=== PATIENT | male | born 1985 | race Caucasian/White ===

== ENCOUNTER 2022-10-11 11:18 | Outpatient (AMB) | payer OTHER, SELFPAY ==
[2022-10-11 11:33] VITALS: BP 108/66; PULSE 55; RESP 12; TEMP 36.4; O2SAT 99; BMI 25.1
--- NOTE | 2022-10-11 11:33 | MHC.PC.OV ---
Vital Signs 10/11/22 11:33 Height 6 ft Weight 185 lb 4 oz BMI 25.1 BP 108/66 Blood Pressure Location Rt brachial Position Sitting Respiration 12 Pulse 55 Pulse Source Pulse Oximeter Temp 97.6 F Temp Source Temporal Artery Scan Pulse Oximetry (%) 99 Oxygen Delivery Method Room Air Intake Visit Reasons: New patient-Requesting physical Intake Note: Patient states that he has had vasavagal Syncope his whole life. Patient states that he has been fainting alot more often than he has in the past 8 years. Patient states that it happens very randomly. Lunch Cook Required: No Accompanied by: Self / Same As Patient Allergies No Known Allergies Allergy (Verified 10/11/22 11:46) Medication List - Last Reconciled 10/11/22 by Scar Chapa CNP multivitamin 1 tab PO DAILY Dental Screening Dental Screen Date: 10/11/22 Did you have a dental visit in the last 12 months?: Yes Did you have a dental problem in the last 6 months where you did not have access to dental care?: No Was dental information given to patient?: Patient has dentist HPI HPI Comments History of Present Illness Details 37-year-old male presents to [facility] care. He notes he was last evaluated by his former PCP a year ago. He had blood work done 3 years ago. He reports history of vasovagal syncope. He reports 4 episodes in the past 2 years; last episode was 3 weeks ago while lying in bed. 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 He notes he had cardiology workup while in 8th grade. He reports h/o ADD. He was on Focalin when he has not taken in the past 16 years. He requests to resume Focalin. He is not currently on prescription medications. He notes that he is sexually active, in a monogamous relationship, and practices safe sex. 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 1. Little interest or pleasure in doing things: not at all 2. Feeling down, depressed, or hopeless: not at all 3. Trouble falling or staying asleep, or sleeping too much: not at all 4. Feeling tired or having little energy: not at all 5. Poor appetite or overeating: nearly every day 6. Feeling bad about yourself - or that you are a failure or have let yourself or your family down: not at all 7. Trouble concentrating on things, such as reading the newspaper or watching television: several days 8. Moving or speaking so slowly that other people could have noticed. Or the opposite - being so fidgety or restless that you have been moving around a lot more than usual: not at all 9. Thoughts that you would be better off or of hurting yourself in some way: not at all Total score: 4 Depression Screening Interpretation: Negative Source: Developed by Drs. Jaime Clements, Akilah Michele, Josh Gonzalez and colleagues, with an educational khurram from [employer]. Thrive Questionnaire Date Thrive assessed: 10/11/22 I am a: Patient What is your living situation today?: I have a steady place to live Within the past 12 months, did the food you bought not last and you didn't have the money to get more?: Never true Within the past 12 months, did you worry whether your food would run out before you got money to buy more?: Never true Do you have trouble paying for medicines?: No Do you have trouble getting transportation to medical appointments?: No Do you have trouble paying your heating and electricity bill?: No Do you have trouble taking care of your child, family member or friend?: No Do you have trouble with day-to-day activities such as bathing, preparing meals, shopping, managing finances, etc.?: No Are you currently unemployed and looking for a job?: No Are you interested in more education?: No Please select the resources that you would like help with: None Currently or been in a relationship where the following occur: no concerns reported CHAU-7 AMB Questionnaire CHAU-7 Date CHAU - 7 assessed: 10/11/22 Feeling nervous, anxious, or on edge: 1 = Several days Not being able to stop or control worryin = Not at all Worrying too much about different things: 0 = Not at all Trouble relaxin = Not at all Being so restless that it is hard to sit still: 3 = Nearly every day Becoming easily annoyed or irritable: 2 = More than half the days Feeling afraid as if something awful might happen: 0 = Not at all Total CHAU-7 score (0-4 normal; 5-9 mild; 10-14 moderate; 15-21 severe): 6 Source: Developed by Drs. Jaime Clements, Akilah Michele, Josh Gonzalez and colleagues, with an educational khurram from [employer]. Review of Systems Const Details: Denies chills, Denies fatigue, Denies fever(s), Denies headache(s) and Denies weakness HEENT Denies change in vision, Denies dizziness, Denies headache(s), Denies hearing loss, Denies nasal congestion, Denies sinus pain, Denies sinus pressure and Denies sore throat Card Denies chest pain, Denies lightheadedness, Denies dyspnea and Denies other (palpitations) Resp Denies cough, Denies dyspnea and Denies wheezing GI Denies abdominal pain, Denies melena, Denies hematochezia, Denies change in bowel habits, Denies dyspepsia and Denies nausea Denies hematuria and Denies dysuria Musc Denies abnormal gait, Denies myalgias, Denies arthralgias, Denies numbness and Denies tingling Skin/Breast Denies rash, Denies unusual bruising and Denies wounds Neuro Denies abnormal gait, Denies dizziness, Denies headache(s), Denies memory loss, Denies numbness, Denies Sensory deficit (Neuro), Denies tingling and Denies weakness Psych Denies anxiety, Denies depression and Denies memory loss Endo Denies cold intolerance, Denies fatigue, Denies heat intolerance, Denies polydipsia and Denies polyuria Isak/Lymph Denies easy bleeding and Denies easy bruising Aller/Immun Denies wheezing Physical exam (Primary Care) Vital Signs: Last Vital Signs Temp 97.6 F 10/11/22 11:33 Pulse 55 10/11/22 11:33 Resp 12 10/11/22 11:33 BP 108/66 10/11/22 11:33 Pulse Ox 99 10/11/22 11:33 Oxygen Delivery Method Room Air 10/11/22 11:33 BMI result Body Mass Index 25.1 Tobacco/Smoking Status: Tobacco use Status Patient Tobacco Use Status Former Tobacco user 10/11/22 11:47 e-Cigarette/Vaping Use Never Used 10/11/22 11:47 PHQ-9: PHQ-9 Score PHQ-9: Total score 4 10/11/22 11:50 Depression Screening Interpretation: Negative Thrive Assessment: Date of Thrive Assessment Date Thrive assessed 10/11/22 10/11/22 11:50 Currently or been in a relationship where the following occur: no concerns reported Const Other: General: no acute distress, well developed, alert and awake Nutritional Appearance: well nourished Orientation/consciousness: patient oriented x3 HENMT Head: Yes normocephalic and Yes atraumatic Ears: hearing grossly normal bilaterally and TM's normal bilaterally General nose exam: Normal external nose present and Normal nares present Mouth: Normal oral and palatal mucosa present and moist mucous membranes Teeth and gingiva: dentition normal Throat: Yes oropharynx normal Eyes Pupils: Equal, round and reactive pupils present and Pupil accommodation reflex normal EOM: EOMs intact bilaterally Neck Neck: Yes normal visual inspection, Yes no lymphadenopathy and Yes trachea midline Thyroid: Thyroid normal Carotids: no bruits Lymphatic: no lymphadenopathy noted Chest Chest palpation & inspection: normal inspection of the chest Resp Effort & Inspection: normal respiratory effort Auscultation: clear to auscultation bilaterally Cardio Rate: regular rate Rhythm: regular rhythm Heart sounds: S1 normal heart sound present, S2 normal heart sound present, no gallops, no murmurs and no rubs Bruits: no abdominal aortic bruits and no carotid bruits GI Palpation (GI): No Abdominal aortic bruit present, Soft to palpation, nontender, No hepatosplenomegaly present and No Rebound tenderness present Auscultation: normal bowel sounds General: Yes no CVA tenderness Back/Spine/Pelvis Back: no CVA tenderness Cervical Spine: cervical ROM normal and No Cervical spine tenderness Thoracic/Lumbar Spine: thoraco-lumbar ROM normal, No pain with thoraco-lumbar ROM, No thoracic spinal tenderness and No lumbar spinal tenderness Skin General: warm and dry. Normal skin color. Normal skin turgor Lesions: no lesions Rashes: no rashes Trauma: no lacerations or abrasions Wounds: no wounds Nails: normal Neuro General: patient oriented x3, gait normal and CN's II-XI intact bilaterally Cranial nerves: Yes Equal, round and reactive pupils present Cognition (Neuro): normal cognition Gait exam (Neuro): Normal gait present Motor exam (neuro): 5/5 motor strength present throughout Sensory Exam: No Sensory deficit (Neuro) Deep tendon reflexes (DTR's): Right patellar reflex intensity grade: 2+ and Left patellar reflex intensity grade: 2+ Extrem General: Yes normal to inspection, No edema and No calf tenderness Psych Appearance: grossly normal Affect: normal affect Attitude: cooperative Thought process: Normal thought process present Assessment and Plan Assessment & Plan (1) Normal physical examination, routine: Code(s): Z00.00 - Encounter for general adult medical examination without abnormal findings Plan: No significant physical restrictions or limitations noted (2) Vasovagal syncope: Code(s): R55 - Syncope and collapse Plan: He reports history of vasovagal syncope. He reports 4 episodes in the past 2 years; last episode was 3 weeks ago while lying in bed. 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 He notes he had cardiology workup while in 8th grade. Routine exercise encouraged Instructed on deep breathing and relaxation techniques Referred to Cardiology Follow-up with worsening or new symptoms Verbalized understanding and agreed with the treatment plan. (3) ADD (attention deficit disorder): Code(s): F98.8 - Other specified behavioral and emotional disorders with onset usually occurring in childhood and adolescence Plan: He reports h/o ADD. He was on Focalin when he has not taken in the past 16 years. He requests to resume Focalin. Encouraged to facilitate transfer of his previous health records for review and initiation of therapy for ADD Follow-up with concerns or symptoms Verbalized understanding and agreed with the plan. (4) Laboratory tests ordered as part of a complete physical exam (CPE): Code(s): Z00.00 - Encounter for general adult medical examination without abnormal findings Plan: Fasting labs ordered as part of a complete physical exam. Advised to fast for at least 10 hours before getting labs drawn. May drink water Verbalized understanding and agreed with treatment plan. Orders: Orders Comprehensive [place]. Panel Fast Today Z00.00 - Encounter for general adult medical examination without abnormal findings Lipid Panel Today Z00.00 - Encounter for general adult medical examination without abnormal findings TSH reflex Free T4 Today Z00.00 - Encounter for general adult medical examination without abnormal findings Complete Blood Count Auto Diff Today Z00.00 - Encounter for general adult medical examination without abnormal findings UA CC w/rflx Micro + Cult Today Z00.00 - Encounter for general adult medical examination without abnormal findings Referrals Cardiology Referral R55 - Syncope and collapse Coding Level of Care Code Tele New Pt Level 4 (36667) Diagnoses Normal physical examination, routine Z00.00 Vasovagal syncope R55 ADD (attention deficit disorder) F98.8 Laboratory tests ordered as part of a complete physical exam (CPE) Z00.00
== END 2022-10-11 12:21 | disposition home or self-care (01) ==
PROVIDERS: PCP Nurse Practitioner Family; Visit Provider Nurse Practitioner Family
DX: Z00.00 Encounter for general adult medical examination without abnormal findings (principal); R55 Syncope and collapse; R41.840 Attention and concentration deficit
CPT/HCPCS: 99385

== ENCOUNTER 2022-10-25 08:41 | Outpatient (REF) | payer OTHER, SELFPAY ==
[2022-10-25 11:40] LABS: MANUAL DIFF FLAG NO
[2022-10-25 12:17] LABS: Basophils Absolute Auto 0.1 X10*3/uL (0.0-0.2); Basophils Percent Auto 1.2 % (0-2); Eosinophils Absolute Auto 0.1 X10*3/uL (0.0-0.4); Eosinophils Percent Auto 1.3 % (0-4); Hematocrit 44.4 % (42.0-52.0); Hemoglobin 15.7 g/dl (14.0-18.0); Imm Gran Abs Auto 0.01 X10*3/uL (0.00-0.03); Imm Gran Pct Auto 0.1 % (0.0-0.4); Lymphocytes Absolute Auto 1.6 X10*3/uL (1.2-4.9); Lymphocytes Percent Auto 24.3 % (20-40); Mean Corpuscular HGB Conc 35.4 g/dl (31.0-36.0); Mean Corpuscular Hemoglobin 31.2 pg (27.0-33.0); Mean Corpuscular Volume 88.1 fL (80.0-98.0); Mean Platelet Volume 9.3 fL (9.4-12.4); Monocytes Absolute Auto 0.6 X10*3/uL (0.1-1.2); Monocytes Percent Auto 8.4 % (2-11); Neutrophils Absolute Auto 4.3 x10*3/uL (2.0-8.3); Neutrophils Percent Auto 64.7 % (45-73); Platelet Count 201 X10*3/uL (160-400); Red Blood Count 5.04 X10*6/uL (4.60-5.80); White Blood Count 6.7 X10*3/uL (4.8-10.8)
[2022-10-25 12:39] LABS: Appearance Urine Turbid; Color Urine Yellow; Glucose Urine UA Negative (Negative); Leukocyte Esterase Urine Negative (Negative); Nitrite Urine Negative (Negative); PH 8.5 (5.0-9.0); Specific Gravity - Urine 1.015 (1.005-1.025); Urine Blood Negative (Negative); Urine Ketones Negative (Negative); Urine Protein Negative (Neg-Trace)
[2022-10-25 12:48] LABS: Alanine Aminotransferase 39 U/L (0-40); Albumin Level 4.2 g/dL (3.5-5.0); Alkaline Phosphatase 55 U/L (39-117); Anion Gap 10 (12-20); Aspartate Amino Transferase 23 U/L (5-37); Bilirubin Total 0.5 mg/dL (0.0-1.0); Blood Urea Nitrogen 11 mg/dL (9-16); Calcium 9.5 mg/dL (8.4-10.2); Carbon Dioxide 28 mmol/L (22-29); Chloride 106 mmol/L (96-108); Cholesterol 206 mg/dL; Estimated Glomerular Filt Rate > 60; Glucose Fasting 96 mg/dL (60-99); HDL Cholesterol 47 mg/dL; LDL Cholesterol Calculated 145 mg/dl; Potassium 4.7 mmol/L (3.3-5.1); Sodium 139 mmol/L (135-145); Total Protein 6.9 g/dL (6.5-8.0); Triglycerides 70 mg/dL
[2022-10-25 13:04] LABS: TSH reflex Free T4 0.58 uIU/mL (0.32-4.0)
== END 2022-10-25 08:42 | disposition home or self-care (01) ==
LOC: HO.WFDLDS 08:41
PROVIDERS: Visit Provider Nurse Practitioner Family
DX: Z00.00 Encounter for general adult medical examination without abnormal findings (principal)
CPT/HCPCS: 36415; 80053; 80061; 81003; 84443; 85025

== ENCOUNTER 2022-11-08 11:33 | Outpatient (AMB) | payer OTHER, SELFPAY ==
[2022-11-08 11:52] VITALS: BP 114/64; PULSE 60; RESP 12; TEMP 36.5; O2SAT 97; BMI 25.4
--- NOTE | 2022-11-08 11:52 | A.OFFPC_ITS ---
Vital Signs 11/08/22 11:52 Height 6 ft Weight 187 lb 2 oz BMI 25.4 BP 114/64 Blood Pressure Location Rt brachial Position Sitting Respiration 12 Pulse 60 Pulse Source Pulse Oximeter Temp 97.7 F Temp Source Oral Pulse Oximetry (%) 97 Oxygen Delivery Method Room Air Intake Visit Reasons: 1 month labs review, ADD Intake Note: Patient is here to follow up on labs, and ADD. Allergies No Known Allergies Allergy (Verified 11/08/22 12:17) Medication List - Last Reconciled 11/08/22 by Scar Chapa CNP multivitamin 1 tab PO DAILY Tobacco use date assessed: 11/08/22 Dental Screening Dental Screen Date: 11/08/22 Did you have a dental visit in the last 12 months?: Yes Did you have a dental problem in the last 6 months where you did not have access to dental care?: No Was dental information given to patient?: Patient has dentist HPI HPI Comments History of Present Illness Details 37-year-old male presents for ADD, and labs review follow-up. He established care last month. Routine labs were ordered. He noted h/o ADD, was on Focalin which he had not taken for the pat 16 years. He requested to resumed Focalin. He was encouraged to contact his electrical lineman to facilitate transfer of his health record to confirm diagnosis of ADD. He notes that he was informed by his former electrical lineman that his record were destroyed per protocol when a patient is inactive for at least 7 years. He reports anxiety symptoms which he notes are related to his work. 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 1. Little interest or pleasure in doing things: more than half the days 2. Feeling down, depressed, or hopeless: not at all 3. Trouble falling or staying asleep, or sleeping too much: several days 4. Feeling tired or having little energy: more than half the days 5. Poor appetite or overeating: more than half the days 6. Feeling bad about yourself - or that you are a failure or have let yourself or your family down: several days 7. Trouble concentrating on things, such as reading the newspaper or watching television: nearly every day 8. Moving or speaking so slowly that other people could have noticed. Or the opposite - being so fidgety or restless that you have been moving around a lot more than usual: several days 9. Thoughts that you would be better off or of hurting yourself in some way: not at all Total score: 12 Source: Developed by Drs. Jaime Clements, Akilah Michele, Josh Gonzalez and colleagues, with an educational khurram from [employer]. Thrive Questionnaire Date Thrive assessed: 10/11/22 CHAU-7 AMB Questionnaire CHAU-7 Date CHAU - 7 assessed: 10/11/22 Feeling nervous, anxious, or on edge: 1 = Several days Not being able to stop or control worryin = Not at all Worrying too much about different things: 1 = Several days Trouble relaxin = Several days Being so restless that it is hard to sit still: 2 = More than half the days Becoming easily annoyed or irritable: 2 = More than half the days Feeling afraid as if something awful might happen: 1 = Several days Total CHAU-7 score (0-4 normal; 5-9 mild; 10-14 moderate; 15-21 severe): 8 Source: Developed by Drs. Jaime Clements, Akilah Michele, Josh Gonzalez and colleagues, with an educational khurram from [employer]. Review of Systems Const Details: Const Denies chills, Denies fatigue, Denies fever(s), Denies headache(s) and Denies weakness ENT Denies dizziness and Denies headache(s) Card Denies chest pain, Denies lightheadedness, Denies dyspnea and Denies other (Palpitations) Resp Denies cough, Denies dyspnea, Denies wheezing and Denies other ( shortness of breath) GI Denies abdominal pain, Denies melena, Denies hematochezia, Denies change in bowel habits, Denies dyspepsia and Denies nausea Denies hematuria and Denies dysuria Musc Denies abnormal gait, Denies myalgias, Denies arthralgias, Denies numbness and Denies tingling Skin/Breast Denies rash, Denies unusual bruising and Denies wounds Neuro Denies abnormal gait, Denies dizziness, Denies headache(s), Denies memory loss, Denies numbness, Denies Sensory deficit (Neuro), Denies tingling and Denies weakness Psych Denies anxiety, Denies depression, Denies memory loss Endo Denies cold intolerance, Denies fatigue, Denies heat intolerance, Denies polydipsia and Denies polyuria Aller/Immun Denies wheezing Physical exam (Primary Care) Vital Signs: Last Vital Signs Temp 97.7 F 11/08/22 11:52 Pulse 60 11/08/22 11:52 Resp 12 11/08/22 11:52 BP 114/64 11/08/22 11:52 Pulse Ox 97 11/08/22 11:52 Oxygen Delivery Method Room Air 11/08/22 11:52 BMI result Body Mass Index 25.4 Tobacco/Smoking Status: Tobacco use Status Tobacco use date assessed 11/08/22 11/08/22 12:00 Patient Tobacco Use Status Former Tobacco user 11/08/22 12:00 e-Cigarette/Vaping Use Never Used 11/08/22 12:00 Thrive Assessment: Date of Thrive Assessment Date Thrive assessed 10/11/22 11/08/22 12:00 Const Other: General: no acute distress and well developed Nutritional Appearance: well nourished Orientation/consciousness: patient oriented x3 HENMT Head: Yes normocephalic and Yes atraumatic Eyes General: appearance normal, both eyes and all related structures Pupils: Equal, round and reactive pupils present EOM: EOMs intact bilaterally Resp Effort & Inspection: normal respiratory effort Auscultation: clear to auscultation bilaterally Cardio Rate: regular rate Rhythm: regular rhythm Heart sounds: S1 normal heart sound present, S2 normal heart sound present, no gallops, no murmurs and no rubs GI Palpation (GI): No Abdominal aortic bruit present, Soft to palpation, nontender, No hepatosplenomegaly present and No Rebound tenderness present Auscultation: normal bowel sounds General: Yes no CVA tenderness Back/Spine/Pelvis Back: no CVA tenderness Cervical Spine: cervical ROM normal and No Cervical spine tenderness Thoracic/Lumbar Spine: thoraco-lumbar ROM normal, No pain with thoraco-lumbar ROM, No thoracic spinal tenderness and No lumbar spinal tenderness Extrem General: Yes normal to inspection, No edema and No calf tenderness Skin General: warm and dry. Normal skin color. Normal skin turgor Lesions: no lesions Rashes: no rashes Trauma: no lacerations or abrasions Wounds: no wounds Nails: normal Neuro General: patient oriented x3, gait normal and no focal neuro deficit Cranial nerves: Yes Equal, round and reactive pupils present Cognition (Neuro): normal cognition Gait exam (Neuro): Normal gait present Sensory Exam: No Sensory deficit (Neuro) Psych Appearance: grossly normal Affect: normal affect Attitude: cooperative Thought process: Normal thought process present Assessment and Plan Assessment & Plan (1) ADD (attention deficit disorder): Code(s): F98.8 - Other specified behavioral and emotional disorders with onset usually occurring in childhood and adolescence Plan: Patient unable to obtain previous health record. He notes that he was informed by his former electrical lineman that his record were destroyed per protocol when a patient is an active for at least 7 years. Will treat anxiety and depression with sertraline Will referred to neuropsychiatry if ADD symptoms persist or worsens Follow-up with new or worsening symptoms Verbalized understanding and agreed with treatment plan. (2) Anxiety: Code(s): F41.9 - Anxiety disorder, unspecified Plan: PHQ-9 and CHAU-7 scores revealed moderate depression and mild anxiety respectively Treatment as above (3) Depression: Code(s): F32.A - Depression, unspecified Plan: As above (4) Hypercholesterolemia: Code(s): E78.00 - Pure hypercholesterolemia, unspecified Plan: Recent lab results reviewed with the patient. Results were unremarkable except for slightly elevated total cholesterol and LDL. Advised to limit foods high in saturated fat and avoid foods high trans fat Routine exercise encouraged Verbalized understanding and agreed with treatment plan. Medications: New sertraline 25 mg PO DAILY 30 days 30 tabs 3RF Coding Level of Care Code Est Pt Level 3 (59689) Diagnoses ADD (attention deficit disorder) F98.8 Anxiety F41.9 Depression F32.A Hypercholesterolemia E78.00
== END 2022-11-08 12:42 | disposition home or self-care (01) ==
PROVIDERS: PCP Nurse Practitioner Family; Visit Provider Nurse Practitioner Family
DX: F98.8 Other specified behavioral and emotional disorders with onset usually occurring in childhood and adolescence (principal); F41.9 Anxiety disorder, unspecified; F32.A Depression, unspecified; E78.00 Pure hypercholesterolemia, unspecified
CPT/HCPCS: 99213

== ENCOUNTER 2022-12-06 08:41 | Outpatient (AMB) | payer OTHER, SELFPAY ==
--- NOTE | 2022-12-06 08:47 | A.OFFPC_ITS ---
Vital Signs 12/06/22 08:48 Height 6 ft Weight 186 lb 4 oz BMI 25.3 BP 122/66 Blood Pressure Location Rt brachial Position Sitting Respiration 12 Pulse 62 Pulse Source Pulse Oximeter Temp 97.2 F Temp Source Temporal Artery Scan Pulse Oximetry (%) 99 Oxygen Delivery Method Room Air Intake Visit Reasons: 1 month labs review, ADD Tests Superintendent Required: No Accompanied by: Self / Same As Patient Allergies No Known Allergies Allergy (Verified 12/06/22 09:11) Medication List - Last Reconciled 12/06/22 by Scar Chapa CNP multivitamin 1 tab PO DAILY sertraline 25 mg PO DAILY 30 days Tobacco use date assessed: 11/08/22 Dental Screening Dental Screen Date: 12/06/22 Did you have a dental visit in the last 12 months?: Yes Did you have a dental problem in the last 6 months where you did not have access to dental care?: No Was dental information given to patient?: Patient has dentist HPI HPI Comments History of Present Illness Details 37-year-old male presents for ADHD follo w-up. He was started on sertraline 25 mg daily almost a month ago. He admits to taking the medication as prescribed and his fear and worry symptoms have completely subsided. He notes he continues to feel easily overwhelmed. He denies acute symptoms at this time. He states he has an appointment with cardiology in 02/05/2023 h/o vasovagal syncope. 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 1. Little interest or pleasure in doing things: not at all 2. Feeling down, depressed, or hopeless: not at all 3. Trouble falling or staying asleep, or sleeping too much: several days 4. Feeling tired or having little energy: several days 5. Poor appetite or overeating: several days 6. Feeling bad about yourself - or that you are a failure or have let yourself or your family down: not at all 7. Trouble concentrating on things, such as reading the newspaper or watching television: nearly every day 8. Moving or speaking so slowly that other people could have noticed. Or the opposite - being so fidgety or restless that you have been moving around a lot more than usual: not at all 9. Thoughts that you would be better off or of hurting yourself in some way: not at all Total score: 6 Depression Screening Interpretation: Positive Depression Screening Follow-up: Existing condition and In treatment Source: Developed by Drs. Jaime Clements, Akilah Michele, Josh Gonzalez and colleagues, with an educational khurram from [employer]. Thrive Questionnaire Date Thrive assessed: 10/11/22 CHAU-7 AMB Questionnaire CHAU-7 Date CHAU - 7 assessed: 12/06/22 Feeling nervous, anxious, or on edge: 0 = Not at all Not being able to stop or control worryin = Not at all Worrying too much about different things: 1 = Several days Trouble relaxin = Not at all Being so restless that it is hard to sit still: 2 = More than half the days Becoming easily annoyed or irritable: 2 = More than half the days Feeling afraid as if something awful might happen: 0 = Not at all Total CHAU-7 score (0-4 normal; 5-9 mild; 10-14 moderate; 15-21 severe): 5 Source: Developed by Drs. Jaime Clements, Akilah Michele, Josh Gonzalez and colleagues, with an educational khurram from [employer]. Review of Systems Const Details: Const Denies chills, Denies fatigue, Denies fever(s), Denies headache(s) and Denies weakness ENT Denies dizziness and Denies headache(s) Card Denies chest pain, Denies lightheadedness, Denies dyspnea and Denies other (Palpitations) Resp Denies cough, Denies dyspnea, Denies wheezing and Denies other ( shortness of breath) GI Denies abdominal pain, Denies melena, Denies hematochezia, Denies change in bowel habits, Denies dyspepsia and Denies nausea Denies hematuria and Denies dysuria Musc Denies abnormal gait, Denies myalgias, Denies arthralgias, Denies numbness and Denies tingling Skin/Breast Denies rash, Denies unusual bruising and Denies wounds Neuro Denies abnormal gait, Denies dizziness, Denies headache(s), Denies memory loss, Denies numbness, Denies Sensory deficit (Neuro), Denies tingling and Denies weakness Psych Denies anxiety, Denies depression, Denies memory loss Endo Denies cold intolerance, Denies fatigue, Denies heat intolerance, Denies polydipsia and Denies polyuria Aller/Immun Denies wheezing Physical exam (Primary Care) Vital Signs: Last Vital Signs Temp 97.2 F 12/06/22 08:48 Pulse 62 12/06/22 08:48 Resp 12 12/06/22 08:48 BP 122/66 12/06/22 08:48 Pulse Ox 99 12/06/22 08:48 Oxygen Delivery Method Room Air 12/06/22 08:48 BMI result Body Mass Index 25.3 Tobacco/Smoking Status: Tobacco use Status Tobacco use date assessed 11/08/22 12/06/22 08:56 Patient Tobacco Use Status Former Tobacco user 12/06/22 08:56 e-Cigarette/Vaping Use Never Used 12/06/22 08:56 Depression Screening Interpretation: Positive Depression Screening Follow-up: Existing condition and In treatment Thrive Assessment: Date of Thrive Assessment Date Thrive assessed 10/11/22 12/06/22 08:56 Const Other: General: no acute distress and well developed Nutritional Appearance: well nourished Orientation/consciousness: patient oriented x3 HENMT Head: Yes normocephalic and Yes atraumatic Eyes General: appearance normal, both eyes and all related structures Pupils: Equal, round and reactive pupils present EOM: EOMs intact bilaterally Resp Effort & Inspection: normal respiratory effort Auscultation: clear to auscultation bilaterally Cardio Rate: regular rate Rhythm: regular rhythm Heart sounds: S1 normal heart sound present, S2 normal heart sound present, no gallops, no murmurs and no rubs GI Palpation (GI): No Abdominal aortic bruit present, Soft to palpation, nontender, No hepatosplenomegaly present and No Rebound tenderness present Auscultation: normal bowel sounds General: Yes no CVA tenderness Back/Spine/Pelvis Back: no CVA tenderness Cervical Spine: cervical ROM normal and No Cervical spine tenderness Thoracic/Lumbar Spine: thoraco-lumbar ROM normal, No pain with thoraco-lumbar ROM, No thoracic spinal tenderness and No lumbar spinal tenderness Extrem General: Yes normal to inspection, No edema and No calf tenderness Skin General: warm and dry. Normal skin color. Normal skin turgor Lesions: no lesions Rashes: no rashes Trauma: no lacerations or abrasions Wounds: no wounds Nails: normal Neuro General: patient oriented x3, gait normal and no focal neuro deficit Cranial nerves: Yes Equal, round and reactive pupils present Cognition (Neuro): normal cognition Gait exam (Neuro): Normal gait present Sensory Exam: No Sensory deficit (Neuro) Psych Appearance: grossly normal Affect: normal affect Attitude: cooperative Thought process: Normal thought process present Assessment and Plan Assessment & Plan (1) Anxiety: Code(s): F41.9 - Anxiety disorder, unspecified Plan: PHQ-9 and CHAU-7 scores revealed mild depression and anxiety No acute symptoms at this time Continue to take sertraline as prescribed Routine exercise encouraged Follow-up in 2 months or return sooner with worsening or new symptoms Verbalized understanding and agreed with treatment plan. (2) Depression: Code(s): F32.A - Depression, unspecified Plan: As above (3) ADD (attention deficit disorder): Code(s): F98.8 - Other specified behavioral and emotional disorders with onset usually occurring in childhood and adolescence Plan: He reports resolution of anxiety and depression symptoms since started on sertraline. However, he continues to feel easily overwhelmed especially with work. Continue to take sertraline as prescribed Routine exercise encouraged Referred to [facility] neuropsychiatry for evaluation of ADD Follow-up in 2 months or return sooner with worsening or new symptoms Verbalized understanding and agreed with treatment plan. Orders: Referrals Neuropsychiatry Referral F32.A - Depression, unspecified, F41.9 - Anxiety disorder, unspecified, F98.8 - Other specified behavioral and emotional disorders with onset usually occurring in childhood and adolescence Coding Level of Care Code Est Pt Level 3 (67086) Diagnoses Anxiety F41.9 Depression F32.A ADD (attention deficit disorder) F98.8
[2022-12-06 08:48] VITALS: BP 122/66; PULSE 62; RESP 12; TEMP 36.2; O2SAT 99; BMI 25.3
== END 2022-12-06 09:29 | disposition home or self-care (01) ==
PROVIDERS: PCP Nurse Practitioner Family; Visit Provider Nurse Practitioner Family
DX: F41.9 Anxiety disorder, unspecified (principal); F32.A Depression, unspecified; F98.8 Other specified behavioral and emotional disorders with onset usually occurring in childhood and adolescence
CPT/HCPCS: 99213

== ENCOUNTER 2023-02-07 09:21 | Outpatient (AMB) | payer OTHER, SELFPAY ==
[2023-02-07 09:24] VITALS: BP 106/62; PULSE 63; BMI 26.4
--- NOTE | 2023-02-07 09:24 | A.OFFVIS_ITS ---
Intake Vital Signs 02/07/23 09:24 Height 6 ft Weight 194 lb 7.163 oz BMI 26.4 BP 106/62 Blood Pressure Location Lt brachial Position Standing Pulse 63 Intake Visit Reasons: NPV/M. Eduard/Syncope and collapse Intake Note: NPV w/ EKG Infantry Officer Required: No Allergies No Known Allergies Allergy (Verified 02/07/23 09:27) Medication List - Last Reconciled 02/07/23 by Malcolm Pedersen MD multivitamin 1 tab PO DAILY sertraline 25 mg PO DAILY 30 days HPI HPI Comments History of Present Illness Details Kevan is here for consultation regarding syncopal episodes. He has apparently had syncope since about middle school years. At that time, he apparently saw Pediatric Cardiology and it seems he was told to have a hole in the heart. However, workup was overall any med for according to him. It was eventually able does vasovagal syncope. After that, he has had episodes approximately once a year or so. During his 20s he was relatively free of any syncope. More recently, he is getting much more. This year, he has had almost 4 episodes. Can happen randomly. Sometimes during anxious moments. Sometimes when he is even just lying down in bed. Nothing ever exertional. No other cardiac symptoms. Has a history of anxiety and ADHD. 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 Cognitive needs: No Hearing needs: No Vision needs: Yes Review of Systems Const Denies chills, Denies daytime sleepiness, Denies fatigue, Denies fever(s), Denies frequent falls, Denies night sweats, Denies snoring, Denies weakness, Denies weight gain and Denies weight loss Eyes Denies loss of vision ENT Denies dizziness and Denies hearing loss Card Denies chest pain, Denies chest pain with activity, Denies syncope, Denies rapid heart rate, Denies edema, Denies claudication, Denies leg edema, Denies lightheadedness, Denies palpitations, Denies dyspnea, Denies dyspnea on exertion and Denies orthopnea Resp Denies cough, Denies excessive phlegm production, Denies dyspnea, Denies dyspnea on exertion, Denies snoring and Denies wheezing GI Denies abdominal pain, Denies hematochezia, Denies change in bowel habits, Denies change in stool character, Denies heartburn, Denies nausea and Denies vomiting Denies hematuria, Denies dysuria and Denies urinary frequency Musc Denies arthralgias, Denies muscle weakness, Denies numbness and Denies tingling Skin/Breast Denies nail changes and Denies rash Neuro Denies Abnormal speech present, Denies dizziness, Denies syncope, Denies frequent falls, Denies loss of vision, Denies memory loss, Denies numbness, Denies tingling and Denies weakness Psych Denies depression and Denies memory loss Endo Denies fatigue and Denies palpitations Aller/Immun Denies wheezing Physical Exam Vital Signs: Last Vital Signs Pulse 63 02/07/23 09:24 BP 106/62 02/07/23 09:24 BMI result Body Mass Index 26.4 Const General: comfortable and no acute distress Orientation/consciousness: patient oriented x3 HEENT Other: Unremarkable Head: Yes normal to inspection Neck Neck: Yes normal visual inspection Chest Chest palpation & inspection: normal inspection of the chest Resp Auscultation: clear to auscultation bilaterally Cardio Palpation: normal PMI Heart sounds: S1 normal heart sound present, S2 normal heart sound present, no gallops, no murmurs and no rubs GI Palpation (GI): Soft to palpation Back/Spine/Pelvis Other: unremarkable Skin General skin exam: no rashes or lesions noted Neuro General: patient oriented x3 Speech: No Abnormal speech present Extrem General: Yes normal to inspection Psych Mental Status: mental status grossly normal Office Procedures EKG Details: EKG with sinus rhythm at 63/Min; no significant ST-T changes and otherwise [place]remarkable. [place] [id number], Complete Assessment & Plan Assessment & Plan (1) Vasovagal syncope: Code(s): R55 - Syncope and collapse Plan Longstanding syncopal episodes going back decades, thought to be vasovagal syncope. This may very well be the case. Anxiety is another possibility. On exam, he does not have any murmur of aortic stenosis or hypertrophic cardiomyopathy. On EKG, no evidence of long QT, Brugada or WPW. There is a history of vasovagal syncope in family. We can start with an echocardiogram and tilt-table testing. Unlikely that he has anything arrhythmogenic and hence do not suggest implantable loop recorder although we discussed about it. Otherwise, mainly reassurance. Discussed with significant other came for appointment. They are comfortable with plan. It seems that he has also been referred to neuropsychiatry and that should also be helpful in his symptom management. Orders: Orders ECG Tilt Table Test Today R55 - Syncope and collapse CA echo transthoracic complete Today R55 - Syncope and collapse Coding Level of Care Code New Pt Level 3 (79107) Diagnoses Vasovagal syncope R55 CPT Codes EKG - CPT: 14717-[id number], Complete ([id number])
== END 2023-02-07 10:17 | disposition home or self-care (01) ==
PROVIDERS: PCP Nurse Practitioner Family; Visit Provider Internal Medicine
DX: R55 Syncope and collapse (principal)
CPT/HCPCS: 93010; 99203

== ENCOUNTER → 2023-02-07 09:21 | Outpatient (BNVA) | payer OTHER, SELFPAY | PROVIDERS: PCP Nurse Practitioner Family; Visit Provider Internal Medicine | DX: R55 Syncope and collapse (principal) | CPT/HCPCS: 93005 ==

== ENCOUNTER 2023-02-11 13:31 | Outpatient (AMB) | payer OTHER, SELFPAY ==
[2023-02-11 13:39] VITALS: BP 104/62; PULSE 68; RESP 13; TEMP 36.5; O2SAT 99; BMI 25.8
--- NOTE | 2023-02-11 13:39 | A.OFFPC_ITS ---
Vital Signs 02/11/23 13:39 Height 6 ft Weight 190 lb 6 oz BMI 25.8 BP 104/62 Blood Pressure Location Rt brachial Position Sitting Respiration 13 Pulse 68 Pulse Source Pulse Oximeter Temp 97.7 F Temp Source Temporal Artery Scan Pulse Oximetry (%) 99 Oxygen Delivery Method Room Air Intake Visit Reasons: chest congestion/ cough Intake Note: Patient states that he started getting sick Tuesday and Tuesday his symptoms started to worsen. Patient states that he is coughing up clear plegm and has sinus pressure and a headache. Logging Specialist Required: No Accompanied by: Self / Same As Patient Allergies No Known Allergies Allergy (Verified 02/11/23 14:07) Medication List - Last Reconciled 02/11/23 by Scar Chapa CNP multivitamin 1 tab PO DAILY sertraline 25 mg PO DAILY 30 days Tobacco use date assessed: 11/08/22 Dental Screening Dental Screen Date: 02/11/23 Did you have a dental visit in the last 12 months?: Yes Did you have a dental problem in the last 6 months where you did not have access to dental care?: No Was dental information given to patient?: Patient has dentist HPI HPI Comments History of Present Illness Details 37-year-old male presents with complaint s of productive cough with clear phlegm, sinus pressure, chest congestion, headache, and fatigue. He reports subjective fever yesterday. He has been taking Mucinex. Reports sick contacts. He is feeling better today with increased energy. He had a negative covid test. No body aches or weakness. He requests a referral to Psychiatry for his mental illness. 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 Jaime Clements, Akilah Michele, Josh Gonzalez and colleagues, with an educational khurram from [employer]. Review of Systems Const Details: Const Denies chills, Denies fatigue, Denies fever(s), Reports headache(s) and Denies weakness ENT Reports as per HPI Card Denies chest pain, Denies lightheadedness, Denies dyspnea and Denies other (Palpitations) Resp Reports cough, Denies dyspnea, Denies wheezing and Denies other ( shortness of breath) GI Denies abdominal pain, Denies melena, Denies hematochezia, Denies change in bowel habits, Denies dyspepsia and Denies nausea Denies hematuria and Denies dysuria Musc Denies abnormal gait, Denies myalgias, Denies arthralgias, Denies numbness and Denies tingling Skin/Breast Denies rash, Denies unusual bruising and Denies wounds Neuro Denies abnormal gait, Denies dizziness, Denies headache(s), Denies memory loss, Denies numbness, Denies Sensory deficit (Neuro), Denies tingling and Denies weakness Psych Denies anxiety, Denies depression, Denies memory loss Endo Denies cold intolerance, Denies fatigue, Denies heat intolerance, Denies polydipsia and Denies polyuria Aller/Immun Denies wheezing Physical exam (Primary Care) Vital Signs: Last Vital Signs Temp 97.7 F 02/11/23 13:39 Pulse 68 02/11/23 13:39 Resp 13 02/11/23 13:39 BP 104/62 02/11/23 13:39 Pulse Ox 99 02/11/23 13:39 Oxygen Delivery Method Room Air 02/11/23 13:39 BMI result Body Mass Index 25.8 Tobacco/Smoking Status: Tobacco use Status Tobacco use date assessed 11/08/22 02/11/23 13:50 Patient Tobacco Use Status Former Tobacco user 02/11/23 13:50 e-Cigarette/Vaping Use Never Used 02/11/23 13:50 Thrive Assessment: Date of Thrive Assessment Date Thrive assessed 10/11/22 02/11/23 13:50 Const Other: General: no acute distress and well developed Nutritional Appearance: well nourished Orientation/consciousness: patient oriented x3 HENMT Head is normocephalic Bilateral ear canal and TM are normal Nasal turbinates and oropharynx are pink and moist Sinuses are nontender with palpation No auricular or cervical lymphadenopathy Eyes General: appearance normal, both eyes and all related structures Pupils: Equal, round and reactive pupils present EOM: EOMs intact bilaterally Resp Effort & Inspection: normal respiratory effort Auscultation: clear to auscultation bilaterally Cardio Rate: regular rate Rhythm: regular rhythm Heart sounds: S1 normal heart sound present, S2 normal heart sound present, no gallops, no murmurs and no rubs GI Palpation (GI): No Abdominal aortic bruit present, Soft to palpation, nontender, No hepatosplenomegaly present and No Rebound tenderness present Auscultation: normal bowel sounds General: Yes no CVA tenderness Back/Spine/Pelvis Back: no CVA tenderness Cervical Spine: cervical ROM normal and No Cervical spine tenderness Thoracic/Lumbar Spine: thoraco-lumbar ROM normal, No pain with thoraco-lumbar ROM, No thoracic spinal tenderness and No lumbar spinal tenderness Extrem General: Yes normal to inspection, No edema and No calf tenderness Skin General: warm and dry. Normal skin color. Normal skin turgor Neuro General: patient oriented x3, gait normal and no focal neuro deficit Cranial nerves: Yes Equal, round and reactive pupils present Cognition (Neuro): normal cognition Gait exam (Neuro): Normal gait present Sensory Exam: No Sensory deficit (Neuro) Psych Appearance: grossly normal Affect: normal affect Attitude: cooperative Thought process: Normal thought process present Assessment and Plan Assessment & Plan (1) Viral upper respiratory illness: Code(s): J06.9 - Acute upper respiratory infection, unspecified Plan: Likely viral illness though possibly allergies. No exam evidence of bacterial infection Viral illness There is no antibiotic medication for viruses.? They must run their course.? Most average 5-7 days but 7-10 days is not uncommon and up to 14 days is still possible.? A cough is often the last symptom to resolve and this can last for weeks in some cases. Rest Hydrate well -? Drink plenty of fluids.? Especially water. Tylenol or ibuprofen for muscle aches, headache, fever/discomfort Zyrtec daily Cannot rule out COVID-19/RSV/Flu infection Nasal swab acquired and will be sent to the lab Return for new or worsening symptoms Verbalized understanding and agreed with treatment plan. Orders: Orders SARS-CoV2/FLU/RSV Today J06.9 - Acute upper respiratory infection, unspecified Coding Level of Care Code Est Pt Level 3 (15628) Diagnoses Viral upper respiratory illness J06.9
== END 2023-02-11 14:37 | disposition home or self-care (01) ==
PROVIDERS: PCP Nurse Practitioner Family; Visit Provider Nurse Practitioner Family
DX: J06.9 Acute upper respiratory infection, unspecified (principal)
CPT/HCPCS: 99213

== ENCOUNTER 2023-02-11 14:28 | Outpatient (REF) | payer OTHER, SELFPAY ==
[2023-02-11 19:35] LABS: Influenza A PCR NEGATIVE (Negative); Influenza B PCR NEGATIVE (Negative); Resp Syncy Virus RNA Qual PCR NEGATIVE (Negative); SARS COV2 PCR INHOUSE NEGATIVE (Negative)
== END 2023-02-11 14:29 | disposition home or self-care (01) ==
LOC: HO.LAB 14:28
PROVIDERS: Visit Provider Nurse Practitioner Family
DX: Z11.52 Encounter for screening for COVID-19 (principal); J06.9 Acute upper respiratory infection, unspecified
CPT/HCPCS: 0241U

== ENCOUNTER 2023-06-14 13:42 | Outpatient (AMB) | payer SELFPAY ==
--- NOTE | 2023-06-14 13:46 | A.OFFPC_ITS ---
Vital Signs 06/14/23 13:47 Height 6 ft Weight 186 lb 6 oz BMI 25.3 BP 102/62 Blood Pressure Location Rt brachial Position Sitting Respiration 13 Pulse 68 Pulse Source Pulse Oximeter Temp 97.6 F Temp Source Temporal Artery Scan Pulse Oximetry (%) 98 Intake Visit Reasons: Sick Visit Pacs Specialist Required: No Accompanied by: Self / Same As Patient Allergies No Known Allergies Allergy (Verified 06/14/23 13:58) Medication List - Last Reconciled 06/14/23 by Scar Chapa CNP bupropion HCl (Wellbutrin XL) 300 mg PO QAM guanfacine 2 mg PO BEDTIME multivitamin 1 tab PO DAILY sertraline 25 mg PO DAILY 30 days Tobacco use date assessed: 06/14/23 Dental Screening Dental Screen Date: 06/14/23 Did you have a dental visit in the last 12 months?: Yes Did you have a dental problem in the last 6 months where you did not have access to dental care?: No Was dental information given to patient?: Patient has dentist HPI HPI Comments History of Present Illness Details 38-year-old male presents with complaint s of fever (temp of 101 yesterday), chills, body aches, and dry cough. His symptoms have been ongoing since yesterday. His fiancee has been sick with similar symptoms and her symptoms started a day before the patient. He and his fiancee tested negative for covid at home. He has been taking DayQuil which has been helping his cough. 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 Jaime Clements, Akilah Michele, Josh Gonzalez and colleagues, with an educational khurram from [employer]. Review of Systems Const Details: Const Denies chills, Denies fatigue, Denies fever(s), Denies headache(s) and Denies weakness ENT Reports as per HPI Card Denies chest pain, Denies lightheadedness, Denies dyspnea and Denies other (Palpitations) Resp Denies cough, Denies dyspnea, Denies wheezing and Denies other ( shortness of breath) GI Denies abdominal pain, Denies melena, Denies hematochezia, Denies change in bowel habits, Denies dyspepsia and Denies nausea Denies hematuria and Denies dysuria Musc Denies abnormal gait, Denies myalgias, Denies arthralgias, Denies numbness and Denies tingling Skin/Breast Denies rash, Denies unusual bruising and Denies wounds Neuro Denies abnormal gait, Denies dizziness, Denies headache(s), Denies memory loss, Denies numbness, Denies Sensory deficit (Neuro), Denies tingling and Denies weakness Psych Denies anxiety, Denies depression, Denies memory loss Endo Denies cold intolerance, Denies fatigue, Denies heat intolerance, Denies polydipsia and Denies polyuria Aller/Immun Denies wheezing Physical exam (Primary Care) Vital Signs: Last Vital Signs Temp 97.6 F 06/14/23 13:47 Pulse 68 06/14/23 13:47 Resp 13 06/14/23 13:47 BP 102/62 06/14/23 13:47 Pulse Ox 98 06/14/23 13:47 BMI result Body Mass Index 25.3 Tobacco/Smoking Status: Tobacco use Status Tobacco use date assessed 06/14/23 06/14/23 13:55 Patient Tobacco Use Status Former Tobacco user 06/14/23 13:55 e-Cigarette/Vaping Use Never Used 06/14/23 13:55 Thrive Assessment: Date of Thrive Assessment Date Thrive assessed 10/11/22 06/14/23 13:55 Const Other: General: no acute distress and well developed Nutritional Appearance: well nourished Orientation/consciousness: patient oriented x3 HENMT Head is normocephalic Bilateral ear canal and TM are normal Nasal turbinates and oropharynx are pink and moist Sinuses are nontender with palpation No auricular or cervical lymphadenopathy Eyes General: appearance normal, both eyes and all related structures Pupils: Equal, round and reactive pupils present EOM: EOMs intact bilaterally Resp Effort & Inspection: normal respiratory effort Auscultation: clear to auscultation bilaterally Cardio Rate: regular rate Rhythm: regular rhythm Heart sounds: S1 normal heart sound present, S2 normal heart sound present, no gallops, no murmurs and no rubs GI Palpation (GI): No Abdominal aortic bruit present, Soft to palpation, nontender, No hepatosplenomegaly present and No Rebound tenderness present Auscultation: normal bowel sounds General: Yes no CVA tenderness Back/Spine/Pelvis Back: no CVA tenderness Cervical Spine: cervical ROM normal and No Cervical spine tenderness Thoracic/Lumbar Spine: thoraco-lumbar ROM normal, No pain with thoraco-lumbar ROM, No thoracic spinal tenderness and No lumbar spinal tenderness Extrem General: Yes normal to inspection, No edema and No calf tenderness Skin General: warm and dry. Normal skin color. Normal skin turgor Neuro General: patient oriented x3, gait normal and no focal neuro deficit Cranial nerves: Yes Equal, round and reactive pupils present Cognition (Neuro): normal cognition Gait exam (Neuro): Normal gait present Sensory Exam: No Sensory deficit (Neuro) Psych Appearance: grossly normal Affect: normal affect Attitude: cooperative Thought process: Normal thought process present Assessment and Plan Assessment & Plan (1) Viral upper respiratory illness: Code(s): J06.9 - Acute upper respiratory infection, unspecified Plan: Likely viral illness though possibly allergies. No exam evidence of bacterial infection Viral illness There is no antibiotic medication for viruses.? They must run their course.? Most average 5-7 days but 7-10 days is not uncommon and up to 14 days is still possible.? A cough is often the last symptom to resolve and this can last for weeks in some cases. Rest Hydrate well -? Drink plenty of fluids.? Especially water. Tylenol or ibuprofen for muscle aches, headache, fever/discomfort Cannot rule out COVID-19/RSV/Flu infection Nasal swab acquired and will be sent to the lab Return for new or worsening symptoms Verbalized understanding and agreed with treatment plan. (2) Laboratory tests ordered as part of a complete physical exam (CPE): Code(s): Z00.00 - Encounter for general adult medical examination without abnormal findings Plan: Fasting labs ordered in preparation of a complete physical exam. Advised to fast for at least 10 hours before getting labs drawn. May drink water Verbalized understanding and agreed with treatment plan. Orders: Orders Complete Blood Count Auto Diff 4 Months Z00.00 - Encounter for general adult medical examination without abnormal findings SARS-CoV2/FLU/RSV Today R09.89 - Other specified symptoms and signs involving the circulatory and respiratory systems Comprehensive [place]. Panel Fast 4 Months Z00.00 - Encounter for general adult medical examination without abnormal findings Lipid Panel 4 Months Z00.00 - Encounter for general adult medical examination wi thout abnormal findings TSH reflex Free T4 4 Months Z00.00 - Encounter for general adult medical examination without abnormal findings UA CC w/rflx Micro + Cult 4 Months Z00.00 - Encounter for general adult medical examination without abnormal findings Coding Level of Care Code Est Pt Level 3 (95790) Diagnoses Viral upper respiratory illness J06.9 Laboratory tests ordered as part of a complete physical exam (CPE) Z00.00
[2023-06-14 13:47] VITALS: BP 102/62; PULSE 68; RESP 13; TEMP 36.4; O2SAT 98; BMI 25.3
== END 2023-06-14 14:16 | disposition home or self-care (01) ==
PROVIDERS: PCP Nurse Practitioner Family; Visit Provider Nurse Practitioner Family
DX: J06.9 Acute upper respiratory infection, unspecified (principal); Z00.00 Encounter for general adult medical examination without abnormal findings
CPT/HCPCS: 99213

== ENCOUNTER 2023-06-14 14:19 | Outpatient (REF) | payer OTHER, SELFPAY ==
[2023-06-15 13:10] LABS: Influenza A PCR POSITIVE (Negative); Influenza B PCR NEGATIVE (Negative); Resp Syncy Virus RNA Qual PCR NEGATIVE (Negative); SARS COV2 PCR INHOUSE NEGATIVE (Negative)
== END 2023-06-14 14:20 | disposition home or self-care (01) ==
LOC: HO.LAB 14:19
PROVIDERS: Visit Provider Nurse Practitioner Family
DX: R09.89 Other specified symptoms and signs involving the circulatory and respiratory systems (principal)
CPT/HCPCS: 0241U